=== PATIENT | female | born 1990 | race Caucasian/White ===

== ENCOUNTER → 2019-09-20 10:28 | Outpatient (CLI) | payer BC, SELFPAY ==
[2019-09-20 11:13] LABS: Add Manual Diff / Slide Review NO; Basophils Absolute Auto 100 /uL (0-100); Basophils Percent Auto 0.9 % (0-2); Eosinophils Absolute Auto 200 /uL (0-450); Eosinophils Percent Auto 2.7 % (2-4); Hematocrit 41.2 % (36-46); Lymphocytes Absolute Auto 1800 /uL (1100-4500); Lymphocytes Percent Auto 25.4 % (25-40); Mean Corpuscular HGB Conc 33.9 % (30-36); Mean Corpuscular Hemoglobin 28.7 PG (26-34); Mean Corpuscular Volume 84.7 fL (80-100); Monocytes Absolute Auto 400 /uL (0-900); Monocytes Percent Auto 5.3 % (3-14); Neutrophils Absolute Auto 4600 /uL (1500-7000); Neutrophils Percent Auto 65.7 % (50-75); Platelet Count 278 X10^3/uL (150-400); Red Blood Cell Count 4.86 X10^6/uL (4.0-5.2); Red Cell Distribution Width 13.4 % (11.6-14.8)
[2019-09-20 11:50] LABS: Free T4, Direct Thyroxine 0.95 ng/dL (0.78-2.19)
[2019-09-20 17:59] LABS: Thyroid Stimulating Hormone 2.41 uIU/mL (0.47-4.68)
[2019-09-23 15:55] LABS: Anti Thyroglobulin Antibody 2 IU/mL (< 2); Thyroid Peroxidase Antibodies 113 IU/mL (< 9)
[2019-09-27 13:07] LABS: Thyroid Peroxidase Antibodies 119
== END ==
PROVIDERS: PCP Family Medicine; Visit Provider Family Medicine
DX: E03.9 Hypothyroidism, unspecified (principal)
CPT/HCPCS: 36415; 84439; 84443; 84481; 85025; 86376; 86800

== ENCOUNTER → 2020-06-10 09:45 | Outpatient (CLI) | payer BC, SELFPAY ==
[2020-06-10 11:38] LABS: TSH w/ Reflex to FT4 2.68 uIU/mL (0.47-4.68)
[2020-06-11 14:35] LABS: Thyroid Peroxidase Antibodies 171 IU/mL (0-34)
== END ==
PROVIDERS: PCP Family Medicine; Referring Provider Family Medicine; Visit Provider Family Medicine
DX: R76.8 Other specified abnormal immunological findings in serum (principal)
CPT/HCPCS: 36415; 84443; 86376

== ENCOUNTER → 2020-06-17 11:01 | Outpatient (CLI) | payer BC, SELFPAY ==
[2020-06-17 12:36] LABS: Hemoglobin A1C% w Est Avg Glu 4.8 % (4.0-6.0)
[2020-06-17 12:54] LABS: Cholesterol 161 mg/dL (140-199); HDL Cholesterol 39 mg/dL (40-60); LDL Cholesterol Calculated 99 mg/dL (<100); Triglycerides 116 mg/dL (35-150)
== END ==
PROVIDERS: PCP Family Medicine; Referring Provider Family Medicine; Visit Provider Family Medicine
DX: E66.01 Morbid (severe) obesity due to excess calories (principal)
CPT/HCPCS: 36415; 80061; 83036

== ENCOUNTER → 2020-06-18 12:19 | Outpatient (CLI) | payer BC, SELFPAY ==
--- NOTE | 2020-06-18 12:21 | DI.US.S_ITS ---
PROCEDURE: US PELVIC COMPLETE INDICATIONS: SPOTTING SINCE IUD PLACEMENT TECHNIQUE: Real-time scanning was performed of the pelvic organs, with image documentation. Additional endovaginal scanning was necessary due to incomplete visualization of the adnexal and endometrial structures by transabdominal scanning. COMPARISON: None. FINDINGS: Transabdominal scanning: Limited scanning through the kidneys shows no hydronephrosis. No pathologic free abdominal or pelvic fluid. Endovaginal scanning: Uterus: Uterus is normal in size at 8.3 x 4.8 x 5.3 cm. The endometrium measures 4 mm in combined thickness. The IUD is low lying, with the inferior portion seen at the level of the cervix. Ovaries: The right ovary measures 5.1 x 4.9 x 4.4 cm. There is a complex cyst without abnormal vascularity seen within the right ovary that measures 4.1 x 3.7 x 3.1 cm. This demonstrates a fish that type echotexture. The left ovary is not seen. No adnexal masses are seen on either side. IMPRESSION: The IUD is low lying, with the inferior portion seen along the level of the cervix. Presumed hemorrhagic cyst of the right ovary that measures up to 4.1 cm. At clinical discretion, a followup pelvic ultrasound is suggested in 6 weeks to assure resolution/ improvement. Dictated by: Sumeet Teixeira M.D. on 06/18/2020 at 14:16 Approved by: Sumeet Teixeira M.D. on 06/18/2020 at 14:18
== END ==
PROVIDERS: PCP Family Medicine; Referring Provider Family Medicine; Visit Provider Family Medicine
DX: N92.0 Excessive and frequent menstruation with regular cycle (principal); N83.291 Other ovarian cyst, right side; Z97.5 Presence of (intrauterine) contraceptive device
CPT/HCPCS: 76830; 76856

== ENCOUNTER → 2020-07-24 10:41 | Outpatient (CLI) | payer BC, SELFPAY ==
--- NOTE | 2020-07-24 10:42 | DI.US.S_ITS ---
PROCEDURE: US PELVIC COMPLETE INDICATIONS: ovarian cyst TECHNIQUE: Real-time scanning was performed of the pelvic organs, with image documentation. The patient declined transvaginal imaging. COMPARISON: [facility], , PELVIC COMPLETE, 06/18/2020, 12:31. FINDINGS: Transabdominal scanning: Limited scanning through the kidneys shows no hydronephrosis. No pathologic free abdominal or pelvic fluid. Endovaginal scanning: Uterus: Uterus is normal in size at 12.9 x 3.9 x 4.8 cm. The endometrium measures 5.5 mm in combined thickness. The IUD is now seen at its expected location involving the fundus of the uterus. Ovaries: The right ovary measures 4.7 x 2.1 x 2.5 cm. The left ovary measures 4.2 x 1.8 x 2 cm. The ovaries have a normal sonographic appearance. No adnexal masses are seen. Normal appearing arterial waveforms are confirmed to each ovary. IMPRESSION: The IUD is now seen as expected location at the fundus of the uterus. Dictated by: Sumeet Teixeira M.D. on 07/24/2020 at 12:57 Approved by: Sumeet Teixeira M.D. on 07/24/2020 at 12:59
== END ==
PROVIDERS: PCP Family Medicine; Referring Provider Family Medicine; Visit Provider Family Medicine
DX: N83.209 Unspecified ovarian cyst, unspecified side (principal); Z97.5 Presence of (intrauterine) contraceptive device
CPT/HCPCS: 76856

== ENCOUNTER → 2020-10-28 09:47 | Outpatient (CLI) | payer BC, SELFPAY ==
[2020-10-28 10:15] LABS: Add Manual Diff / Slide Review NO; Basophils Absolute Auto 0 /uL (0-100); Eosinophils Absolute Auto 100 /uL (0-450); Eosinophils Percent Auto 2.2 % (2-4); Hematocrit 42.2 % (36-46); Hemoglobin 14.3 g/dL (12.0-16.0); Lymphocytes Absolute Auto 1600 /uL (1100-4500); Mean Corpuscular HGB Conc 33.9 % (30-36); Mean Corpuscular Hemoglobin 28.6 PG (26-34); Mean Corpuscular Volume 84.4 fL (80-100); Monocytes Absolute Auto 400 /uL (0-900); Monocytes Percent Auto 7.7 % (3-14); Neutrophils Absolute Auto 2700 /uL (1500-7000); Neutrophils Percent Auto 55.1 % (50-75); Platelet Count 227 X10^3/uL (150-400); Red Cell Distribution Width 13.6 % (11.6-14.8); White Blood Cell Count 4.8 X10^3/uL (4.5-11.0)
[2020-10-28 10:58] LABS: Alanine Aminotransferase 20 IU/L (<35); Albumin 4.3 g/dL (3.5-5.0); Albumin Globulin Ratio 1.2 (1.0-2.8); Alkaline Phosphatase 93 U/L (38-126); Aspartate Aminotransferase 28 IU/L (14-36); Bilirubin Total 0.8 mg/dL (0.2-1.3); Blood Urea Nitrogen 9 mg/dL (7-17); Calcium 9.2 mg/dL (8.4-10.2); Carbon Dioxide 27 mmol/L (22-32); Chloride 105 mmol/L (98-107); Estimated Glomerular Filt Rate > 60.0 mL/min (>60); Globulin 3.5 g/dL (1.7-4.1); Glucose 107 mg/dL (70-100); HEMOLYSIS < 15 (0-50); Potassium 4.1 mmol/L (3.4-5.1); Sodium 137 mmol/L (137-145); Total Protein 7.8 g/dL (6.3-8.2)
[2020-10-28 11:13] LABS: Prolactin 14.3 ng/mL (3.0-18.6)
[2020-10-28 12:12] LABS: TSH w/ Reflex to FT4 2.12 uIU/mL (0.47-4.68)
[2020-10-29 18:51] LABS: Anti Thyroglobulin Antibody 1.4 IU/mL (0.0-0.9); Thyroid Peroxidase Antibodies 174 IU/mL (0-34)
== END ==
PROVIDERS: PCP Family Medicine; Referring Provider Family Medicine; Visit Provider Family Medicine
DX: E66.01 Morbid (severe) obesity due to excess calories (principal); F41.9 Anxiety disorder, unspecified; R76.8 Other specified abnormal immunological findings in serum
CPT/HCPCS: 36415; 80053; 84146; 84443; 85025; 86376; 86800

== ENCOUNTER → 2023-12-13 09:21 | Outpatient (CLI) | payer BC, SELFPAY ==
[2023-12-13 10:10] LABS: Add Manual Diff / Slide Review NO; Basophils Absolute Auto 0 /uL (0-100); Basophils Percent Auto 0.7 % (0-2); Eosinophils Absolute Auto 100 /uL (0-450); Eosinophils Percent Auto 2.4 % (2-4); Hemoglobin 13.5 g/dL (12.0-16.0); Lymphocytes Absolute Auto 1400 /uL (1100-4500); Lymphocytes Percent Auto 26.7 % (25-40); Mean Corpuscular HGB Conc 33.7 % (30-36); Mean Corpuscular Hemoglobin 28.4 PG (26-34); Mean Corpuscular Volume 84.3 fL (80-100); Monocytes Absolute Auto 300 /uL (0-900); Monocytes Percent Auto 6.4 % (3-14); Neutrophils Absolute Auto 3300 /uL (1500-7000); Neutrophils Percent Auto 63.8 % (50-75); Platelet Count 268 X10^3/uL (150-400); Red Blood Cell Count 4.75 X10^6/uL (4.0-5.2); Red Cell Distribution Width 14.2 % (11.6-14.8); White Blood Cell Count 5.2 X10^3/uL (4.5-11.0)
[2023-12-13 10:30] LABS: Hemoglobin A1C% w Est Avg Glu 4.7 % (4.0-6.0)
[2023-12-13 10:38] LABS: Alanine Aminotransferase 10 IU/L (<35); Albumin 4.1 g/dL (3.5-5.0); Albumin Globulin Ratio 1.4 (1.0-2.8); Alkaline Phosphatase 86 U/L (38-126); Aspartate Aminotransferase 19 IU/L (14-36); BUN Creatinine Ratio 19.4 (6-22); Bilirubin Total 0.7 mg/dL (0.2-1.3); Blood Urea Nitrogen 12 mg/dL (7-17); Calcium 9.2 mg/dL (8.4-10.2); Carbon Dioxide 26 mmol/L (22-32); Chloride 108 mmol/L (98-107); Cholesterol 158 mg/dL (140-199); Estimated Glomerular Filt Rate > 60 mL/min (>60); Globulin 2.9 g/dL (1.7-4.1); Glucose 103 mg/dL (70-100); HDL Cholesterol 41 mg/dL (40-60); HEMOLYSIS < 15 (0-50); LDL Cholesterol Calculated 100 mg/dL (<100); Sodium 139 mmol/L (137-145); Triglycerides 87 mg/dL (35-150)
[2023-12-13 10:50] LABS: Vitamin D 25 Hydroxy (D3) 22.3 ng/mL (30.0-100.0)
[2023-12-13 11:05] LABS: TSH w/ Reflex to FT4 2.12 uIU/mL (0.47-4.68)
[2023-12-13 11:11] LABS: Cortisol AM (Before 10AM) 11.5 ug/dL (4.46-22.7)
== END ==
PROVIDERS: PCP Family Medicine; Referring Provider Family Medicine; Visit Provider Family Medicine
DX: Z00.00 Encounter for general adult medical examination without abnormal findings (principal)
CPT/HCPCS: 36415; 80053; 80061; 82306; 82533; 83036; 84443; 85025

== ENCOUNTER → 2023-12-14 14:04 | Outpatient (CLI) | payer BC, SELFPAY ==
--- NOTE | 2023-12-14 14:06 | DI.RAD.S_ITS ---
PROCEDURE: XR CERVICAL SPINE 2V OR 3V INDICATIONS: neck pain with neuropathy TECHNIQUE: 3 view(s) of the cervical spine were acquired. COMPARISON: None. FINDINGS: Bones: No fractures or dislocations to the T1 level. The lateral masses of C1 appear intact on the odontoid view. No suspicious bony lesions. Soft tissues: No prevertebral soft tissue swelling. IMPRESSION: Normal cervical spine radiographs Approved by: Jaylan Menchaca M.D. on 12/14/2023 at 18:19
== END ==
PROVIDERS: PCP Family Medicine; Referring Provider Family Medicine; Visit Provider Family Medicine
DX: M54.2 Cervicalgia (principal)
CPT/HCPCS: 72040

== ENCOUNTER → 2024-01-05 15:07 | Outpatient (CLI) | payer BC, SELFPAY | PROVIDERS: PCP Family Medicine; Referring Provider Family Medicine; Visit Provider Family Medicine | DX: R00.2 Palpitations (principal) | CPT/HCPCS: 93246 ==

== ENCOUNTER → 2024-01-05 15:35 | Outpatient (CLI) | payer BC, SELFPAY ==
--- NOTE | 2024-01-06 16:07 | DIET.OUTPTC ---
Dietary Outpatient Consultation Note Consultation Date: 01/05/2024 Assessment: 33 y F referred to dietitian for obesity. Crissy reports she has struggled with weight loss despite being physically active and 2 meals/day. She is starting Wegovy in 3 months. Hx of anti TPO antibodies, hirsutism, vitamin D deficiency. 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 Modified energy, protein, fiber intake -Provided educ on balanced meals, label reading (in progress), macros, with brief overview on Wegovy in relation to nutrition Goals: 1. Add in lunch or mid day snack - [place] yogurt and fruit 2. Include protein source w/ breakfast - eggs or pb on bagel 3. Add in vegetable at dinner Future goals: -eliminate SSB Monitoring/Evaluations: goals, diet recall w/ portion sizes F/u in 1 month Electronically Signed by: Sydni Gaona 01/06/24 16:07 Clinical Dietitian [address] [address]
== END ==
PROVIDERS: PCP Family Medicine; Referring Provider Family Medicine
DX: E66.01 Morbid (severe) obesity due to excess calories (principal); Z68.44 Body mass index [BMI] 60.0-69.9, adult; Z71.3 Dietary counseling and surveillance
CPT/HCPCS: 97802

== ENCOUNTER → 2024-02-10 15:48 | Outpatient (CLI) | payer BC, SELFPAY ==
--- NOTE | 2024-02-18 14:14 | DIET.OUTPTC ---
Addendum entered by Sydni Gaona 02/18/24 14:27: consult date was: 02/10/24 Original Note: Dietary Outpatient Consultation Note Consultation Date: 02/18/2024 Assessment: 33 y F referred to dietitian for obesity. Nutrition f/u. Crissy is starting Wegovy in 1-2 months. Hx of anti TPO antibodies, hirsutism, vitamin D deficiency. Reports she has added a protein at lunch and now has lunch. Feels an increase in energy level. It is difficult to have time to prepare a dinner d/t being busy, will choose convenience options ~4x/wk (i.e. pizza). 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 Modified energy, protein, fiber intake -Reinforced continued consistent meals, protein at each meals, listening to hunger, discussed nutrition in relation to anticipated start to wegovy (i.e adequate intakes, adequate fiber, reduced saturated fat) 2. Reviewed label reading and protein goals at dinner with convenience meals -Provided handouts on label guide, lean protein choices and SFA vs. MUFAs/PUFAs Goals: 1. Add in fiber at dinner through use of whole grain breads, fruit, or quick prep vegs 2. On days when doing convenience meal, label read for saturated fat, sodium, and protein Monitoring/Evaluations: goals, diet recall w/ portion sizes F/u in 1 month Electronically Signed by: Sydni Gaona 02/18/24 14:14 Clinical Dietitian [address] [id number]
== END ==
PROVIDERS: PCP Family Medicine; Referring Provider Family Medicine
DX: E66.9 Obesity, unspecified (principal); Z68.44 Body mass index [BMI] 60.0-69.9, adult; Z71.3 Dietary counseling and surveillance
CPT/HCPCS: 97803

== ENCOUNTER → 2024-03-07 15:48 | Outpatient (CLI) | payer BC, SELFPAY ==
--- NOTE | 2024-03-10 15:14 | DIET.OUTPTC ---
Dietary Outpatient Consultation Note Consultation Date: 03/07/2024 Assessment: 34 y F referred to dietitian for obesity. Nutrition f/u. Crissy is starting Wegovy. Hx of anti TPO antibodies, hirsutism, vitamin D deficiency. Reports continuation of having breakfast and lunch. Is using online recipes to help create protein based meal options. Now has eggs and cottage cheese with breakfast and urdu yogurt and granola for snack/lunch. 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 Discussed other barriers including difficulty maintaining consistency. 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 Modified energy, protein, fiber intake -Reinforced continued consistent meals, protein at each meals, fiber with dinners -Provided handout of all topics discussed during 3 sessions -[place] to address barriers 2. Reviewed label reading 3. Increased physical activity/muscle building activities -Discussed goal of recc 150 minutes and use of bands/weight 2 times a week for muscle building Monitoring/Evaluations: f/u PRN Electronically Signed by: Sydni Gaona 03/10/24 15:14 Clinical Dietitian [address] [id number]
== END ==
PROVIDERS: PCP Family Medicine; Referring Provider Family Medicine
DX: E66.9 Obesity, unspecified (principal); Z68.44 Body mass index [BMI] 60.0-69.9, adult; Z71.3 Dietary counseling and surveillance
CPT/HCPCS: 97803

== ENCOUNTER → 2024-04-18 14:58 | Outpatient (CLI) | payer BC, SELFPAY ==
[2024-04-18 16:15] LABS: Vitamin D 25 Hydroxy (D3) 20.4 ng/mL (30.0-100.0)
[2024-04-18 19:32] LABS: Vitamin B12 287 pg/mL (239-931)
== END ==
LOC: LAB 14:59
PROVIDERS: PCP Family Medicine; Referring Provider Family Medicine; Visit Provider Family Medicine
DX: L68.0 Hirsutism (principal); E55.9 Vitamin D deficiency, unspecified; E66.01 Morbid (severe) obesity due to excess calories; F41.9 Anxiety disorder, unspecified
CPT/HCPCS: 36415; 82306; 82607; 84402; 84403

== ENCOUNTER → 2024-05-26 12:10 | Outpatient (CLI) | payer BC, SELFPAY ==
[2024-05-26 14:29] LABS: Follicle Stimulating Hormone 4.97 mIU/mL
[2024-05-26 14:30] LABS: HCG Quantitative /Beta subunit < 2.39 mIU/mL
[2024-05-26 14:46] LABS: TSH w/ Reflex to FT4 2.07 uIU/mL (0.47-4.68)
== END ==
LOC: LAB 12:11
PROVIDERS: PCP Family Medicine; Referring Provider Family Medicine; Visit Provider Family Medicine
DX: N92.6 Irregular menstruation, unspecified (principal)
CPT/HCPCS: 36415; 82670; 83001; 84443; 84702